=== PATIENT | male | born 1935 | race Caucasian/White ===

== ENCOUNTER 2019-10-07 09:51 | Emergency (ER) | payer MEDICARE ==
[2019-10-07] MEDS ORDERED: ASPIRIN 81 MG CHEWABLE TABLET PO ONE (10:55)
--- NOTE | 2019-10-07 11:05 | Emergency Department Record ---
History of Present Illness - General Chief Complaint: Indigestion Stated Complaint: GASTRITIS Time Seen by Provider: 10/07/19 10:21 Source: Patient, RN notes reviewed Mode of Arrival: Ambulatory - History of Present Illness Initial Comments: epigastric and chest pain which started at 10Pm last night and vomited times one at 7 am and no diarrhea and he has renal failure but he doesn't want to have dialysis. Patient stated the legs are swollen the left is worse and the legs didn't go down this morning. Patient vomited times one this am and felt better. PSH AAA repaired and has seen Dr Claire in the past. Patient has had this pain on and off for weeks but much worse last night. Onset/Timin -: Hour(s) Pain Location: Epigastric - Related Data Home Medications Medication Instructions Recorded Confirmed Last Taken Omeprazole [Prilosec] 20 mg PO DAILY 10/07/19 10/07/19 10/06/19 Previous Rx's Medication Instructions Recorded Amlodipine Besylate [Norvasc] 10 mg PO DAILY #30 tab 08/04/14 Furosemide [Lasix] 40 mg PO BID #60 tablet 10/07/19 Allergies Allergy/AdvReac Type Severity Reaction Status Date / Time Sulfa (Sulfonamide Allergy HIVES Verified 09/13/14 16:24 Antibiotics) Travel/Exposure Screening - Travel/Exposure Within Last 30 Days Have you traveled within the last 30 days?: No - Travel/Exposure Within Last Year Have you traveled outside the [place] in the last year?: No - Additonal Travel/Exposure Details Have you been exposed to anyone with a communicable illness?: No - Travel Symptoms Symptom Screening: Shortness of Breath Review of Systems Reviewed: No additional complaints except as noted below Constitutional: Reports: As per HPI. Denies: Chills, Fever, Malaise, Night sweats, Weakness, Weight change Eyes: Reports: As per HPI. Denies: Eye discharge, Eye pain, Photophobia, Vision change ENT: Reports: As per HPI. Denies: Congestion, Dental pain, Ear pain, Epistaxis, Hearing loss, Throat pain Respiratory: Reports: As per HPI, Dyspnea. Denies: Cough, Hemoptysis, Stridor, Wheezes Cardiovascular: Reports: As per HPI, Chest pain, Edema. Denies: Arrhythmia, Dyspnea on exertion, Murmurs, Orthopnea, Palpitations, Paroxysmal nocturnal dyspnea, Rheumatic Fever, Syncope Endocrine: Reports: As per HPI. Denies: Fatigue, Heat or cold intolerance, Polydipsia, Polyuria Gastrointestinal: Reports: As per HPI. Denies: Abdominal pain, Constipation, Di arrhea, Hematemesis, Hematochezia, Melena, Nausea, Vomiting Genitourinary: Reports: As per HPI. Denies: Dysuria, Frequency, Hematuria, Incontinence, Retention, Testicular pain, Testicular mass, Urgency Musculoskeletal: Reports: As per HPI. Denies: Arthralgia, Back pain, Gout, Joint swelling, Myalgia, Neck pain Skin: Reports: As per HPI. Denies: Bruising, Change in color, Change in hair/nails, Lesions, Pruritus, Rash Neurological: Reports: As per HPI. Denies: Abnormal gait, Confusion, Headache, Numbness, Paresthesias, Seizure, Tingling, Tremors, Vertigo, Weakness Psychiatric: Reports: As per HPI. Denies: Anxiety, Auditory hallucinations, Depression, Homicidal thoughts, Suicidal thoughts, Visual hallucinations Hematological/Lymphatic: Reports: As per HPI. Denies: Anemia, Blood Clots, Easy bleeding, Easy bruising, Swollen glands Past Medical History - SOCIAL HISTORY Smoking Status: Former smoker Alcohol Use: None Drug Use: None - RESPIRATORY Hx Respiratory Disorders: Yes Hx COPD: Yes Hx Sleep Apnea: Yes - CARDIOVASCULAR Hx Cardio Disorders: No Hx Hypertension: Yes Comment:: lower leg circulation - NEURO Hx Neuro Disorders: No - GI Hx GI Disorders: No Hx Abdominal Pain: Yes Hx Irritable Bowel: Yes - Hx Genitourinary Disorders: Yes Hx Renal Disease: Yes Comment:: renal insuficency - ENDOCRINE Hx Endocrine Disorders: No - MUSCULOSKELETAL Hx Musculoskeletal Disorders: Yes Hx Arthritis: Yes - PSYCH Hx Psych Problems: No - HEMATOLOGY/ONCOLOGY Hx Hematology/Oncology Disorders: No Family Medical History Any Significant Family History?: No Family Hx Comment (NOT TO BE USED IN PLACE OF ITEMS BELOW): Does not know for sure Physical Exam - General General Appearance: Alert, Oriented x3, Cooperative, No acute distress - Head Head exam: Normal inspection - Eye Eye exam: Normal appearance, PERRL Pupils: Normal accommodation - ENT ENT exam: Normal exam, Mucous membranes moist, Normal external ear exam, Normal orophraynx, TM's normal bilaterally Ear exam: Normal external inspection. negative: External canal tenderness Nasal Exam: Normal inspection. negative: Discharge, Sinus tenderness Mouth exam: Normal external inspection, Tongue normal Teeth exam: Normal inspection. negative: Dental caries Throat exam: Normal inspection. negative: Tonsillar erythema, Tonsillar exudate - Neck Neck exam: Normal inspection, Full ROM. negative: Tenderness - Respiratory Respiratory exam: Rales. negative: Respiratory distress - Cardiovascular Cardiovascular Exam: Regular rate, Normal rhythm, Systolic murmur - GI/Abdominal GI/Abdominal exam: Soft, Normal bowel sounds, Tenderness (epigastric abd pain) - Rectal Rectal exam: Deferred - exam: Deferred - Extremities Extremities exam: Full ROM, Normal capillary refill, Pedal edema. negative: Tenderness - Back Back exam: Reports: Normal inspection, Full ROM. Denies: Muscle spasm, Rash noted, Tenderness - Neurological Neurological exam: Alert, Normal gait, Oriented X3, Reflexes normal - Psychiatric Psychiatric exam: Normal affect, Normal mood - Skin Skin exam: Dry, Intact, Normal color, Warm Course Vital Signs 10/07/19 10:12 Temperature 97.5 F L Pulse Rate [ 86 Right] Respiratory 18 Rate Blood Pressure 122/84 [Left Arm] Pulse Ox 90 L - Reevaluation(s) Reevaluation #1: eccho done and no pericardial effusion and patient made aware of plan of care and discussed case with Dr. Hammer and will transfer to [facility]. 10/07/19 13:28 Reevaluation #2: urine output 250 ml 10/07/19 13:30 10/07/19 13:40 venous dopliers ordered and patient made aware of the transfer Reevaluation #3: patient is breathing slightly better. 10/07/19 13:44 Reevaluation #4: venous dopplers of both legs neg for DVT's 10/07/19 16:15 Medical Decision Making - Data Complexity MDM Data: Labs Ordered and/or Reviewed (ddimer high 5.6), X-Ray Ordered and/or Reviewed (vascular congestion chest xray ,EKG no acute changes and peaked T wave and T wave inversion V5,V6 and similiar to 2018 ,LVH), EKG Ordered and/or Reviewed (echo no pericardial effusion) - Lab Data Result diagrams: 10/07/19 11:07 10/07/19 11:07 Disposition Clinical Impression: Elevated d-dimer CHF (congestive heart failure) Qualifiers: Heart failure type: systolic Heart failure chronicity: acute Qualified Code(s): I50.21 - Acute systolic (congestive) heart failure Renal failure Qualifiers: Renal failure chronicity: acute on chronic Acute renal failure type: unspecified Chronic kidney disease stage: stage 4 (severe) Qualified Code(s): N17.9 - Acute kidney failure, unspecified Pulmonary edema Qualifiers: Chronicity: acute Qualified Code(s): J81.0 - Acute pulmonary edema Disposition: Home, Self-Care Condition: (2) Stable Instructions: Heart Failure (ED), End Stage Kidney Disease (ED), Chronic Kidney Disease (ED) Additional Instructions: follow up with Dr Sutherland tomorrow at 9 am Prescriptions: Furosemide [Lasix] 40 mg PO BID #60 tablet Forms: Patient Portal Access Time of Disposition: 12:58 Quality - Quality Measures Quality Measures: N/A - Blood Pressure Screening Does Patient Have Any of the Following: No Blood Pressure Classification: Hypertensive Reading Systolic Measurement: 158 Diastolic Measurement: 96 Screening for High Blood Pressure: < First Hypertensive BP, F/U Documented > [G8950] First Hypertensive Follow-up Interventions: Referral to alternative/primary care provider.
[2019-10-07 11:12] LABS: ABSOLUTE NEUTROPHIL COUNT 6.26; HEMATOCRIT 43.3 % (42.0-52.0); HEMOGLOBIN 14.4 gm/dl (14.0-18.0); MEAN CELL VOLUME 90.6 fl (81-97); MEAN CORPUSCULAR HEMOGLOBIN 30.1 pg (27-33); MEAN CORPUSCULAR HGB CONC 33.3 g/dl (32-36); MEAN PLATELET VOLUME 10.9 fl (7.4-10.4); PLATELET COUNT 141 K/uL (130-400); RED BLOOD COUNT 4.78 M/uL (4.40-5.70); RED CELL DISTRIBUTION WIDTH 13.4 % (11.5-14.5); WHITE BLOOD COUNT W/O DIFF 7.7 K/uL (4.2-12.2)
[2019-10-07 11:24] LABS: PLATELET ESTIMATE NORMAL (NORMAL)
[2019-10-07 11:25] LABS: CREATININE 3.3 mg/dL (0.7-1.2)
[2019-10-07 11:37] LABS: PARTIAL THROMBOPLASTIN TIME 27.4 SECONDS (24.5-39.1); PROTHROMBIN TIME (PATIENT) 10.1 SECONDS (9.5-12.1)
[2019-10-07] MEDS ORDERED: FUROSEMIDE IV 40MG/4ML VIAL IVP ONE (11:40)
--- NOTE | 2019-10-07 12:15 | RADIOLOGY REPORT ---
EXAMINATION: Single View Chest EXAM DATE: 10/07/2019 11:25 AM TECHNIQUE: Single view chest INDICATION: chest pain COMPARISON: Chest x-ray 07/31/2019. ENCOUNTER: Not applicable FINDINGS: The heart is borderline to mildly enlarged. No mediastinal mass. Areas of opacity are again seen in t he lower lungs bilaterally. Some of this is chronic in nature. Superimposed acute process of the righ t lung base is suspected. Pulmonary vascular congestion may be present. IMPRESSION: 1. The findings most suggestive of pulmonary vascular congestion which is superimposed on chronic chaparrita g changes. A superimposed pneumonia at the right lung base can't be excluded. Dictated by: Timbo Melgar MD on 10/07/2019 12:10 PM. .
[2019-10-07 15:36] LABS: URINE APPEARANCE CLEAR; URINE BILIRUBIN NEGATIVE (NEGATIVE); URINE BLOOD NEGATIVE (NEGATIVE); URINE COLOR YELLOW; URINE GLUCOSE (UA) NEGATIVE (NEGATIVE); URINE KETONE NEGATIVE (NEGATIVE); URINE LEUKOCYTE ESTERASE NEGATIVE (NEGATIVE); URINE NITRITE NEGATIVE (NEGATIVE); URINE PROTEIN NEGATIVE (NEGATIVE); URINE UROBILINOGEN 0.2 E.U./dL (0.20 - 1.00)
--- NOTE | 2019-10-07 15:55 | ULTRASOUND REPORT ---
EXAMINATION: Complete Right and Left Lower Extremity Venous Duplex Doppler Ultrasound EXAM DATE: 10/07/2019 3:05 PM TECHNIQUE: Real-time B-mode imaging with and without compression was used to evaluate the right and left lower extremity for deep venous thrombosis (DVT). Duplex Doppler with color and spectral Dopple r was used. INDICATION: swollen legs left worse than righ COMPARISON: None Right Lower Extremity Findings: Right Common Femoral Vein: No DVT. Right Femoral Vein: No DVT. Right Popliteal Vein: No DVT. Right Proximal Deep Femoral Vein: No DVT. Right Posterior Tibial Veins: No DVT. Right Peroneal Veins: No DVT. Right proximal Greater Saphenous Vein: No thrombus. Left Lower Extremity Findings: Left Common Femoral Vein: No DVT. Left Femoral Vein: No DVT. Left Popliteal Vein: No DVT. Left Proximal Deep Femoral Vein: No DVT. Left Posterior Tibial Veins: No DVT. Left Peroneal Veins: No DVT. Left proximal Greater Saphenous Vein: No thrombus. Duplex Doppler: Spectral Doppler waveforms show bilateral normal respiratory phasicity in the common femoral veins. Additional Findings: None. IMPRESSION: There is no deep venous thrombosis in the visualized deep veins of the right or left lower extremity. Dictated by: Artis Lozano MD on 10/07/2019 3:53 PM. .
[2019-10-07] MEDS ORDERED: ONDANSETRON HCL IV 4 MG/2 ML VIAL IVP ONE (16:11)
[2019-10-07] MEDS ORDERED: SUCRALFATE 1 G/10 ML UD PO ONE (16:12)
[2019-10-07] MEDS ORDERED: FUROSEMIDE 40 MG TABLET PO ONE (17:02)
== END 2019-10-07 17:21 | disposition left against medical advice (07) ==
LOC: ER 09:51
DX: I13.0 Hypertensive heart and chronic kidney disease with heart failure and stage 1 through stage 4 chronic kidney disease, or unspecified chronic kidney disease (principal); N18.4 Chronic kidney disease, stage 4 (severe); I50.21 Acute systolic (congestive) heart failure; N17.9 Acute kidney failure, unspecified; J81.0 Acute pulmonary edema; R11.10 Vomiting, unspecified; R79.89 Other specified abnormal findings of blood chemistry; R22.43 Localized swelling, mass and lump, lower limb, bilateral; Z87.891 Personal history of nicotine dependence; Z53.29 Procedure and treatment not carried out because of patient's decision for other reasons
CPT/HCPCS: 99285 ×2; 96374; 96375; 85730; 85610; 80048; 81003; 84484; 85379; 85027; 83880; 71045; 93970; 93005; 93306; 93356; J2405; 93010; J1940